=== PATIENT | male | born 1960 | race Caucasian/White ===

== ENCOUNTER 2020-02-08 13:42 | Emergency (ER) | payer OTHER, SELFPAY ==
[2020-02-08 13:48] VITALS: PULSE 90; RESP 18; TEMP 36.3; O2SAT 98; BMI 44.3
--- NOTE | 2020-02-08 13:50 | ED_ITS ---
HPI - Animal Bite General: Chief Complaint: Animal Bite Stated Complaint: LEFT FOOT Time Seen by Provider: 02/08/20 13:45 Source: patient Mode of arrival: ambulatory Limitations: no limitations History of Present Illness: HPI narrative: 59-year-old male who presents here states he was bit on the left foot by copperhead snake for 1 hour ago. He has a puncture wound with minimal swelling. He states he has slight pain he rates a 2 out of 10. He states it feels like a lil bee sting. He denies any shortness of breath. Denies any other symptoms. History improving factors. complaint: animal bite Onset (ago): hour(s) Associated symptoms: Deny chills, fever(s) or headache(s) Review of Systems Const: Denies: fever(s), chills, body aches or change in appetite Eyes: Denies: blurry vision or eye discomfort ENMT: Denies: throat pain or dental pain Card: Denies: chest pain Resp: Denies: dyspnea GI: Denies: abdominal pain, nausea, vomiting or diarrhea : Denies: dysuria Musc: Reports: extremity pain Skin/Breast: Denies: rash Neuro: Denies: headache(s) Psych: Denies: depression Mo/Lymph: Denies: easy bruising All/Imm: Denies: urticaria Physical Exam Const: COMMON NORMALS: no acute distress, patient oriented x3 and healthy appearing HENMT: COMMON NORMALS: normocephalic and atraumatic HEAD & SCALP: normocephalic and atraumatic Eye: COMMON NORMALS: Equal, round and reactive pupils present and EOMs intact bilaterally PUPIL: Yes Equal, round and reactive pupils present Neck/C-Spine: COMMON NORMALS: full ROM and supple Chest: COMMONS NORMALS: normal inspection of the chest and normal palpation of entire chest wall Resp: COMMON NORMALS: normal respiratory effort, No retractions, No use of accessory muscles and clear to auscultation bilaterally AUSCULTATION: clear to auscultation bilaterally Cardio: COMMON NORMALS: regular rate, regular rhythm and No murmurs present (Cardio) RATE: regular rate RHYTHM: regular rhythm GI: COMMON NORMALS: Normal to inspection, nondistended, normoactive bowel sounds present, Soft to palpation, non-tender and no masses PALPATION: Yes Soft to palpation Extremity: COMMON NORMALS: normal to inspection and full ROM NARRATIVE EXTREMITY EXAM: Puncture wound to left foot with no swelling at this time or redness. Neuro: COMMON NORMALS: patient oriented x3, moves all extremities and no focal motor deficits Psych: COMMON NORMALS: mental status grossly normal, Normal thought process present and cooperative THOUGHT PROCESS: Normal thought process present Skin: COMMON NORMALS: no rashes or lesions noted and no wounds GENERAL SKIN EXAM: no rashes or lesions noted Course Vital Signs: Vital signs: Vital Signs Temperature 97.3 F L 02/08/20 13:48 Pulse Rate 90 02/08/20 13:48 Respiratory Rate 18 02/08/20 14:15 Pulse Oximetry 96 02/08/20 14:15 MDM - Animal Bite MDM Narrative: Medical decision making narrative: Patient presents here with a snake bite to his right foot. Likely a dry bite is he has no symptoms after being observed for 2 hours. Patient is hypertensive here and has not seen a PCP. We will get him into PCP and start him on lisinopril. He is asymptomatic. He is to return if worsening. He understands agrees to plan. Lab Data: Labs: Lab Results 02/08/20 02/08/20 02/08/20 Range/Units 13:57 13:57 13:57 WBC 4.9 (4.0-10.0) 10^3/ uL RBC 5.32 H (4.1-5.3) 10^6/u L Hgb 15.5 (11.7-16.6) g/dL Hct 45.4 (42.0-52.0) % MCV 85.3 (80-94) fL MCH 29.1 (28.0-34.0) pg MCHC 34.1 (30.0-36.0) g/dL RDW 11.8 L (12.1-15.1) % Plt Count 217 (130-400) 10^3/c mm MPV 8.5 (7.4-10.4) fL Neut % (Auto) 57.9 % Lymph % (Auto) 30.1 % Nicholas % (Auto) 10.2 % Eos % (Auto) 1.0 % Baso % (Auto) 0.6 % Neut # (Auto) 2.83 (1.8-7.7) 10^3/u L Lymph # (Auto) 1.5 (0.8-4.8) 10^3/u L Nicholas # (Auto) 0.5 (0.2-0.9) 10^3/u L Eos # (Auto) 0.1 (0.0-0.8) 10^3/u L Baso # (Auto) 0.0 (0.0-0.1) 10^3/u L Nucleated RBC % (a uto) 0 % Nucleated RBCs # 0.0 /100WBC PT 12.70 (12.1-14.9) SECO NDS INR 0.92 (0.8-1.2) Sodium 137 (136-145) mmol/L Potassium 4.0 (3.5-5.1) mmol/L Chloride 100 (98-107) mmol/L Carbon Dioxide 25 (22-29) mmol/L Anion Gap 16.0 (5-19) BUN 12 (8-23) mg/dL Creatinine 1.0 (0.7-1.2) mg/dL GFR Calculation 76.2 L (90-130) mL/min Glucose 112 (65-115) mg/dL Calculated Osmolal ity 285 (285-295) mOsm/k g Calcium 9.4 (8.5-10.5) mg/dL Total Bilirubin 0.4 (0.15-1.2) mg/dL AST 25 (0-40) U/L ALT 32 (0-41) U/L Alkaline Phosphata se 77 (40-130) IU/L Total Protein 6.9 (6.6-8.7) g/dL Albumin 4.2 (3.5-5.2) g/dL Globulin 2.7 (1.3-4.6) g/dL Discharge Plan Discharge Patient Disposition: Home Clinical Impression: Snake bite Qualifiers: Encounter type: initial encounter Qualified Code(s): W59.11XA - Bitten by nonvenomous snake, initial encounter Hypertension Qualifiers: Hypertension type: unspecified Qualified Code(s): I10 - Essential (primary) hypertension Condition: Stable Prescriptions: New lisinopril 10 mg tablet 10 mg PO DAILY Qty: 30 RF: 1 No Action garlic 100 mg Tablet 100 mg PO DAILY RF: 0 Fish Oil 1,000 mg (120 mg-180 mg) Capsule 1 cap PO DAILY RF: 0 Discharge Orders: Discharge Order (Routine); Ordered 02/08/20 Ordered By: Beni Cortes Discharge Diet: Advance as tolerated Discharge Activity: Resume usual activity Patient Instructions: Snake Bite (ED), Hypertension (ED) Coding Level of Care Code ED Chief Estimator for Hamzah Fwd Exam Comprehensive
[2020-02-08 14:06] LABS: Basophils % 0.6 %; Eosinophils # 0.1 10^3/uL (0.0-0.8); Hematocrit 45.4 % (42.0-52.0); Hemoglobin 15.5 g/dL (11.7-16.6); Lymphocytes # 1.5 10^3/uL (0.8-4.8); Lymphocytes % 30.1 %; Mean Corpuscular HGB Conc 34.1 g/dL (30.0-36.0); Mean Corpuscular Hemoglobin 29.1 pg (28.0-34.0); Mean Corpuscular Volume 85.3 fL (80-94); Mean Platelet Volume 8.5 fL (7.4-10.4); Monocytes # 0.5 10^3/uL (0.2-0.9); Monocytes % 10.2 %; Neutrophils # 2.83 10^3/uL (1.8-7.7); Neutrophils % 57.9 %; Nucleated Red Blood Cells % 0 %; Platelet Count 217 10^3/cmm (130-400); Red Blood Count 5.32 10^6/uL (4.1-5.3); Red Cell Distribution Width 11.8 % (12.1-15.1); White Blood Count 4.9 10^3/uL (4.0-10.0)
[2020-02-08] MEDS: ondansetron 2 mg/ML SDV 2 mL 4 MG IVP (14:14)
[2020-02-08 14:15] VITALS: RESP 18; O2SAT 96
[2020-02-08] MEDS: morphine 4 mg/mL SDV 1 mL IVP (14:15)
[2020-02-08 14:18] LABS: INR 0.92 (0.8-1.2)
[2020-02-08 14:20] LABS: Alanine Aminotransferase 32 U/L (0-41); Albumin Level 4.2 g/dL (3.5-5.2); Alkaline Phosphatase 77 IU/L (40-130); Aspartate Amino Transferase 25 U/L (0-40); Blood Urea Nitrogen 12 mg/dL (8-23); Calcium 9.4 mg/dL (8.5-10.5); Carbon Dioxide 25 mmol/L (22-29); Chloride 100 mmol/L (98-107); Globulin 2.7 g/dL (1.3-4.6); Glomerular Filtration Rate 76.2 mL/min (90-130); Glucose 112 mg/dL (65-115); Osmolality Calculated 285 mOsm/kg (285-295); Sodium 137 mmol/L (136-145); Total Bilirubin 0.4 mg/dL (0.15-1.2); Total Protein 6.9 g/dL (6.6-8.7)
[2020-02-08 15:52] VITALS: BP 193/105; PULSE 71; RESP 18; O2SAT 99
== END 2020-02-08 15:52 | disposition home or self-care (01) ==
PROVIDERS: Emergency Provider Emergency Medicine
DX: T63.001A Toxic effect of unspecified snake venom, accidental (unintentional), initial encounter (principal); W59.11XA Bitten by nonvenomous snake, initial encounter; I10 Essential (primary) hypertension
CPT/HCPCS: 12345; 36415; 80053; 85025; 85610; 96374; 96375; 99282; 99283; J2270; J2405

== ENCOUNTER 2021-08-04 13:48 | Emergency (ER) | payer OTHER, SELFPAY ==
[2021-08-04 14:17] VITALS: BP 154/82; PULSE 61; RESP 16; TEMP 36.6; O2SAT 97; BMI 48.7
--- NOTE | 2021-08-04 14:26 | ED_ITS ---
Documented by User: WENDY Dyson 08/04/21 16:01 HPI - Extremity Injury (Upper) General: Chief Complaint: Extremity Injury, Upper Stated Complaint: Cut Finger Bad bleeding Time Seen by Provider: 08/04/21 14:25 Source: patient Mode of arrival: ambulatory Limitations: no limitations History of Present Illness: Patient is a nice 61-year-old male who presents to ED today with a complaint of a left pinky finger injury. Patient states he got the distal end of the finger caught in a garage door and ripped off . Patient's tetanus is UTD. complaint: injury to: left and finger Onset (ago): hour(s) Other Extremity Injury: Left: fingers Other injuries: none Handedness: right Place: home Severity: severe Context: crush Associated symptoms: Reports no associated symptoms Treatments prior to arrival: bandage Review of Systems Musc: Reports: extremity pain (L 5th finger) [facility] ED PFSH: Social History Smoking and tobacco status: never smoked Physical Exam Const: COMMON NORMALS: no acute distress, patient oriented x3, no limitations and alert GENERAL APPEARANCE: cooperative NUTRITIONAL APPEARANCE: obese Extremity: GENERAL: Yes normal exam except as noted RIGHT UPPER EXTREMITY: Yes hand & digits OTHER: pt has distal phalanx amputation of L 5th finger with full nail avulsion; bleeding controlled; exposed bone present Neuro: COMMON NORMALS: patient oriented x3 SENSORIUM/ORIENTATION: Yes alert Course Consultations: Consultation #1: Dr. Rao-recommends dressing and send over to ortho clinic and she will evaluate. Vital Signs: Vital signs: Vital Signs Temperature 97.9 F 08/04/21 14:17 Pulse Rate 61 08/04/21 14:17 Respiratory Rate 18 08/04/21 14:48 Blood Pressure 154/82 08/04/21 14:17 Pulse Oximetry 97 08/04/21 14:17 MDM - Extremity Injury (Upper) Medical Decision Making Patient has a comminuted distal tuft fracture/distal phalanx amputation. Tetanus is UTD. Finger was irrigated extensively patient was given IM Ancef. Spoke to Dr. Lea who recommends dressing the finger and sending straight to the orthopedic clinic for evaluation with plan for probable rongeur/skin flap in the OR tomorrow. Lab Data Radiology Impressions Finger X-Ray 08/04/21 14:31 IMPRESSION: Comminuted fracture of the distal tuft of the 5th digit with palmar displacement. Discharge Plan Discharge Patient Disposition: Home Clinical Impression: Fingertip amputation Qualifiers: Encounter type: initial encounter Qualified Code(s): S68.119A - Complete traumatic metacarpophalangeal amputation of unspecified finger, initial encounter Open fracture of distal phalanx of finger of left hand Qualifiers: Encounter type: initial encounter Finger: little finger Fracture alignment: nondisplaced Qualified Code(s): S62.667B - Nondisplaced fracture of distal phalanx of left little finger, initial encounter for open fracture Condition: Stable Prescriptions: New hydrocodone-acetaminophen 5-325 mg tablet 1 tab PO Q4H PRN (Reason: pain) Qty: 20 0RF cephalexin 500 mg capsule 500 mg PO Q6H 7 Days Qty: 28 0RF No Action garlic 100 mg Tablet 100 mg PO DAILY 0RF Rx Instructions: pt states he takes several otc suppliments, but cannot name them at all. he states he just started taking about a week ago. Fish Oil 1,000 mg (120 mg-180 mg) Capsule 1 cap PO DAILY 0RF Rx Instructions: pt states he just started taking suppliments about a week ago. lisinopril 10 mg tablet 10 mg PO DAILY Qty: 30 1RF Discharge Orders: Discharge ED (Routine); Ordered 08/04/21 Ordered By: Sveta Coleman Referrals: Magaly Rao MD [Physician] - Activity Restrictions/Additional Instructions: As we discussed head straight across the street to the [facility] orthopedic clinic where you will see Dr. Rao and she will evaluate finger and possibly plan for the OR tomorrow. Coding Level of Care Code ED Hat Maker for Chg Fwd Exam Expanded Problem Focused Documented by User: Luis Ward DO 08/05/21 07:00 HPI - Extremity Injury (Upper) General: Chief Complaint: Extremity Injury, Upper Stated Complaint: Cut Finger Bad bleeding Time Seen by Provider: 08/04/21 14:25 [facility] ED PFSH: Social History Smoking and tobacco status: never smoked Course Vital Signs: Vital signs: Vital Signs Temperature 97.9 F 08/04/21 14:17 Pulse Rate 61 08/04/21 14:17 Respiratory Rate 18 08/04/21 14:48 Blood Pressure 154/82 08/04/21 14:17 Pulse Oximetry 97 08/04/21 14:17 MDM - Extremity Injury (Upper) Medical Decision Making Patient has a comminuted distal tuft fracture/distal phalanx amputation. Tetanus is UTD. Finger was irrigated extensively patient was given IM Ancef. Spoke to Dr. Lea who recommends dressing the finger and sending straight to the orthopedic clinic for evaluation with plan for probable rongeur/skin flap in the OR tomorrow. Chart reviewed and patient discussed with midlevel. Agree with assessment and plan. Lab Data Radiology Impressions Finger X-Ray 08/04/21 14:31
--- NOTE | 2021-08-04 14:31 | XRR_ITS ---
PROCEDURE INFORMATION: Exam: XR Left Finger(s) Exam date and time: 08/04/2021 1:46 PM Age: 61 years old Clinical indication: Injury or trauma; Other: Caught hand in garage door; Blunt trauma (contusions or hematomas); Left; Additional info: Distal amputation TECHNIQUE: Imaging protocol: XR Left fingers. Views: Minimum 2 views. COMPARISON: No relevant prior studies available. FINDINGS: Bones/joints: Comminuted fracture of the distal tuft of the 5th digit with palmar displacement. Soft tissues: Wound defect along the distal finger. XR/XR finger LT min 2V 32595 IMPRESSION: Comminuted fracture of the distal tuft of the 5th digit with palmar displacement.
[2021-08-04 14:48] VITALS: RESP 18
[2021-08-04] MEDS: ondansetron 2 mg/ML SDV 2 mL 4 MG IM (14:48)
[2021-08-04] MEDS: morphine 4 mg/mL SDV 1 mL IM (14:48)
[2021-08-04] MEDS: ceFAZolin 1,000 mg SDV 1000 MG IM (14:50)
== END 2021-08-04 16:00 | disposition home or self-care (01) ==
PROVIDERS: Emergency Provider Physician Assistant
DX: S68.117A Complete traumatic metacarpophalangeal amputation of left little finger, initial encounter (principal); S62.667B Nondisplaced fracture of distal phalanx of left little finger, initial encounter for open fracture; W23.0XXA Caught, crushed, jammed, or pinched between moving objects, initial encounter; Z20.822 Contact with and (suspected) exposure to COVID-19
CPT/HCPCS: 73140; 87635; 96372; 99283; J0690; J2270; J2405

== ENCOUNTER 2021-08-05 11:58 | Day surgery (SDC) | payer OTHER, SELFPAY ==
[2021-08-05] VITALS (14 sets, daily range): BP systolic 113–142; BP diastolic 66–94; PULSE 58–72; RESP 15–18; TEMP 36.3–36.7; O2SAT 93–100; BMI 51.7
[2021-08-05] MEDS: sodium chloride 0.9% 1,000 ML 30 ML IV (12:47)
--- NOTE | 2021-08-05 12:48 | ANES.PREANE2 ---
Pre-Anesthetic Assessment Height/Weight: Height 1.75 m Weight 158.757 kg Temp Pulse Resp BP Pulse Ox 97.9 F 64 18 119/66 98 08/05/21 12:28 08/05/21 12:28 08/05/21 12:28 08/05/21 12:28 08/05/21 12:28 Preop Diagnosis: Traumatic amputation left small fingertip, Open fracture distal phalanx Operation Date: 08/05/21 16:10 Proposed Procedures p Amputation Finger Revision [id number]/s68.119a(Left) - Magaly Rao MD Familial anesthetic complications: None Was Beta Nadja taken within 24 hours: N/A Was Clonidine taken within 24 hours: N/A Last intake: Intake Last Liquid Date 08/04/21 Last Liquid Time 22:00 Last Solid Date 08/04/21 Last Solid Time 20:00 Social No alcohol and No tobacco Exam alert, oriented x 3, clear to auscultation bilaterally and regular rate & rhythm Airway Mallampati: Class III Dentition: other (missing) Pulmonary Sleep Apnea CV/HEM Hypertension Metabolic Hyperlipidemia and Morbid Obesity Anesthetic Plan ASA status: 3 Anesthesia: MAC Risk of > 500 ml blood loss (7ml/kg in children): No Medications/Allergies Home Medications Medication Instructions Recorded Confirmed Last Taken Type garlic 100 mg tablet 100 mg PO DAILY 02/08/20 08/05/21 08/05/21 History omega 3-rdx-hkr-fish oil 1,000 mg 1 cap PO DAILY 02/08/20 08/05/21 Unknown History (120 mg-180 mg) capsule (Fish Oil) cephalexin 500 mg capsule 500 mg PO Q6H 7 Days #28 cap 08/04/21 08/05/21 08/05/21 Rx hydrocodone 5 mg-acetaminophen 325 1 tab PO Q4H PRN #20 tab 08/04/21 08/05/21 08/05/21 Rx mg tablet atorvastatin 40 mg tablet 40 mg PO DAILY 08/05/21 08/05/21 08/04/21 History hydrochlorothiazide 25 mg tablet 25 mg PO DAILY 08/05/21 08/05/21 08/04/21 History metoprolol tartrate 100 mg tablet 100 mg PO DAILY 08/05/21 08/05/21 08/04/21 History Allergies Allergy/AdvReac Type Severity Reaction Status Date / Time ampicillin Allergy ALGY-Rash Verified 08/04/21 16:26 hydrocodone [From Vicodin] Allergy rash Verified 08/04/21 16:26 [facility] Anesthesia Social History Smoking and tobacco status: never smoked Data Anesthesia Cardiac Studies: No Data to Display
[2021-08-05] MEDS: CELEcoxib 200 mg Capsule 400 MG PO (12:53)
[2021-08-05] MEDS: acetaminophen 1,000 MG/100 ML PIGGYBACK 400 MG IV (12:53)
[2021-08-05] MEDS: vancomycin 1,000 MG in sodium chloride 0.9% 250 ML 250 MG IV (14:26)
--- NOTE | 2021-08-05 14:42 | P.HPUD_ITS ---
Surgery/Procedure H&P Update DATE OF PROCEDURE: August 05, 2021 DATE H&P PERFORMED: 08/04/21 H&P UPDATE INFORMATION: I have reviewed H&P completed within last 30 days, I have examined patient prior to procedure, No changes to prior documentation and H&P is in [facility] EMR on date indicated PREOP DIAGNOSIS: Traumatic amputation left small fingertip, Open fracture distal phalanx PLANNED PROCEDURE: Operation Date: 08/05/21 16:10 Proposed Procedures p Amputation Finger Revision [id number]/s68.119a(Left) - Magaly Rao MD Related Problem List Diagnoses (1) Fingertip amputation: Qualifiers: Encounter type: initial encounter Qualified Code(s): S68.119A - Complete traumatic metacarpophalangeal amputation of unspecified finger, initial encounter (2) Open fracture of distal phalanx of left little finger: Qualifiers: Encounter type: initial encounter Fracture alignment: displaced Qualified Code(s): S62.637B - Displaced fracture of distal phalanx of left little finger, initial encounter for open fracture
[2021-08-05] MEDS: silvasorb gel 44.4 mL 1 APPLIC TOPICAL (15:35)
[2021-08-05] MEDS: silvasorb gel 44.4 mL 44 APPLIC (15:41)
--- NOTE | 2021-08-05 16:10 | PM.OP ---
Operative Report Date of procedure: August 05, 2021 Pre-op diagnosis: Traumatic amputation left small fingertip, Open fracture distal phalanx Post-op diagnosis: Traumatic amputation left small fingertip, Open fracture distal phalanx Procedure done: Revision amputation left small finger distal phalanx with irrigation and debridement Specimens removed/disposition: None Surgeon: Magaly Rao Flight Operations Manager: None Anesthesia: General (Intubated, ASA 3) Estimated blood loss (mL): 5 IV fluids (mL): 800 Urine output (mL): 0 (No Villar) Complications: None Findings: Comminuted distal phalanx fracture, open with traumatic amputation distal tuft of left small finger Condition: stable Disposition: PACU (Then to same-day surgery for discharge to home) Brief History: This 61-year-old gentleman was seen in the emergency department late yesterday afternoon. He had caught the distal aspect of his left small finger in the door suffering a traumatic amputation and open fracture. The patient was sent from the emergency department to my office for further evaluation. History was taken, surgery was discussed, and consents were signed. The patient was scheduled for the above surgery. Questions were answered. Procedure: The patient was brought to the operating theater. The patient had a general intubated anesthesia, ASA 3. No tourniquet was utilized. The patient was also given vancomycin 1 g preoperatively. The arm was then prepped and draped with Betadine in usual fashion with the arm draped free. A surgical pause was performed. At the time, the surgical pause, we confirmed the site and side of surgery. We also confirmed the patient's identity, appropriate and timely administration of preoperative antibiotics and preoperative surgical markings. The patient's finger was evaluated. There was obvious traumatic loss of the distal tip of the small finger of the left hand. This was associated with an open fracture. Imaging studies were reviewed. This study demonstrated an open comminuted fracture of the distal tuft of the small finger of the left hand. The wound was evaluated. There was skin loss, but there was some maintenance of the dermis. After the hand was prepped, soft tissues were elevated off of the most distal aspect of the distal aspect of the remaining distal phalanx. We then used a bone biter and rongeur along with a rasp to resect this distal bone. Once we had enough distal bone resection that we were able to close soft tissues, we obtained hemostasis. The finger was closed with 3-0 nylon sutures. Following this, a sterile dressing was placed consisting of SilvaSorb, Telfa, a fluff, and tube gauze. Over this was placed in Silvino wrap and tape. There were no complications. There were no specimens. The procedure was well tolerated. Plan is the patient will be discharged home. Related Problem List Diagnoses (1) Open fracture of distal phalanx of left little finger: (2) Fingertip amputation:
--- NOTE | 2021-08-05 16:22 | ANE.PACU2 ---
Inpatient post-anesthesia follow up: Airway intact: Yes Vital signs: Temperature 98.1 F Pulse Rate 68 Respiratory Rate 15 Blood Pressure 133/86 Pulse Oximetry 100 Oxygen Delivery Me thod Room Air Oxygen Flow Rate 6 Fraction of Inspir ed Oxygen Hydration adequate: Yes Nausea and vomiting: No Pain level: 2 Mental status: Baseline
[2021-08-05] MEDS: fentaNYL 50 mcg/mL INJ 2mL IVP (16:30)
== END 2021-08-05 17:25 | disposition home or self-care (01) ==
PROVIDERS: Visit Provider Specialist
PROC: (CPT 26951; principal; 2021-08-05 16:00)
DX: S68.117A Complete traumatic metacarpophalangeal amputation of left little finger, initial encounter (principal); W23.0XXA Caught, crushed, jammed, or pinched between moving objects, initial encounter; G47.30 Sleep apnea, unspecified; I10 Essential (primary) hypertension; E78.5 Hyperlipidemia, unspecified; E66.01 Morbid (severe) obesity due to excess calories; Z68.43 Body mass index [BMI] 50.0-59.9, adult
CPT/HCPCS: 26951; J0330; J1100; J2405; J2704; J3010; J3370; J3490; J7030; J7050

== ENCOUNTER 2022-04-05 16:40 | Emergency (ER) | payer OTHER, SELFPAY ==
[2022-04-05 16:56] VITALS: BP 179/108; PULSE 82; RESP 20; TEMP 35.8; O2SAT 96
--- NOTE | 2022-04-05 18:44 | XRR_ITS ---
PROCEDURE INFORMATION: Exam: XR Chest Exam date and time: 04/05/2022 8:07 PM Age: 61 years old Clinical indication: Cough and dyspnea; Additional info: Cough, dyspnea TECHNIQUE: Imaging protocol: Radiologic exam of the chest. Views: 1 view. COMPARISON: No relevant prior studies available. FINDINGS: Lungs: Prominent interstitial markings in the lateral left lung. No focal consolidation. Pleural spaces: There is no pleural effusion or pneumothorax. Heart/Mediastinum: Cardiomediastinal contours are unremarkable. Bones/joints: Bones are unremarkable. XR/XR chest 1V portable [id number] IMPRESSION: Prominent interstitial markings in the lateral left lung. This could be related to radiographic technique. Atypical infection or asymmetric edema not excluded.
--- NOTE | 2022-04-05 18:44 | ECG_ITS ---
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 Measurements Intervals [place] Rate: 72 P: 28 [place]: 149 QRS: 38 QRSD: 98 T: 8 QT: 403 QTc: 443 Interpretive Statements SINUS RHYTHM No previous ECG available for comparison Electronically Signed On 04-06-2022 17:09:36 [employer] ESTATE PORTFOLIO MANAGER by Yash Quijano M.D. [id number]
--- NOTE | 2022-04-05 18:46 | ED_ITS ---
HPI - SOB/Dyspnea General: Chief Complaint: Shortness of Breath/Dyspnea Stated Complaint: SOB, not able to eat Time Seen by Provider: 04/05/22 18:37 History of Present Illness: HPI Narrative: 61-year-old male with a relevant history of morbid obesity, former alcohol abuse, prior bleeding peptic ulcer, hypertension who presents with 1 month of cough and shortness of breath which has been getting progressively worse. He believes he had a fever at the beginning but has not had one in the last few weeks. He does have orthopnea, dyspnea on minimal exertion, dry hacking cough, nausea, loss of appetite. He has been taking erythromycin 4 times a day. He do es not know the dosage and states that it was meant for an animal and he just happened to have some in his house. He had no way of getting to town to get other medication. Associated symptoms: Reports chest pain (From coughing so much), diaphoresis and orthopnea; Deny abdominal pain, extremity pain, hemoptysis, syncope or vomiting Review of Systems General: Reports: 10 or more systems reviewed and unremarkable except in HPI and below Const: Reports: change in appetite, fatigue, malaise and diaphoresis; Denies: chills or body aches Eyes: Denies: change in vision ENMT: Reports: hoarseness and post nasal drip Card: Reports: chest pain (From coughing so much), edema, dyspnea on exertion and orthopnea; Denies: syncope Resp: Reports: dyspnea, non-productive cough and wheezing; Denies: hemoptysis GI: Denies: abdominal pain, vomiting or diarrhea : Denies: flank pain, dysuria or urinary frequency Musc: Reports: extremity swelling; Denies: neck pain, back pain or extremity pain Skin/Breast: Denies: rash or erythema Neuro: Denies: headache(s), numbness in extremities, weakness in extremities, lack of coordination or difficulty walking Psych: Reports: anxiety PFSH ED PFSH: Social History Smoking and tobacco status: never smoked Physical Exam Const: COMMON NORMALS: no limitations, alert and well nourished EXAM LIMITATIONS: no altered mental status GENERAL APPEARANCE: cooperative and well developed NUTRITIONAL APPEARANCE: obese ORIENTATION/CONSCIOUSNESS: Yes awake; not confused HENMT: COMMON NORMALS: normocephalic, atraumatic, external ears normal and Normal external nose present HEAD & SCALP: normal to inspection, normocephalic and atraumatic FACE & SINUS: face symmetric NOSE: Normal external nose present EXTERNAL EAR: Yes external ears normal MOUTH: lip normal and other (Hoarse voice) Eye: COMMON NORMALS: EOMs intact bilaterally and conjunctivae normal GENERAL EYE: appearance normal, both eyes and all related structures CONJUNCTIVA: Yes conjunctivae normal Neck/C-Spine: GENERAL: Yes normal visual inspection and Yes trachea midline Resp: EFFORT & INSPECTION: No able to speak in complete sentences, Yes tachypneic, Yes Actively coughing, Yes uses accessory muscles and Yes audible wheezes AUSCULTATION: abnormal I/E ratio and wheezes Cardio: COMMON NORMALS: regular rate and regular rhythm RATE: regular rate RHYTHM: regular rhythm PERIPHERAL PULSES: radial pulses present GI: COMMON NORMALS: Soft to palpation INSPECTION: Yes normal to inspection PALPATION: Yes Soft to palpation, No Tenderness to palpation present (GI) and No Guarding due to palpation present (GI) Back/Pelvis: COMMON NORMALS: thoraco-lumbar ROM normal Extremity: NARRATIVE EXTREMITY EXAM: Mild bilateral ankle edema Neuro: COMMON NORMALS: moves all extremities, no focal motor deficits and no sensory deficits noted SENSORIUM/ORIENTATION: Yes alert Psych: COMMON NORMALS: mental status grossly normal, Normal thought process present, cooperative and normal affect THOUGHT PROCESS: Normal thought process present Skin: COMMON NORMALS: no jaundice Course Vital Signs: Vital signs: Vital Signs Temperature 96.5 F L 04/05/22 16:56 Pulse Rate 80 04/05/22 19:04 Respiratory Rate 20 H 04/05/22 18:57 Blood Pressure 179/108 04/05/22 16:56 Pulse Oximetry 96 04/05/22 18:57 Oxygen Delivery Me thod 04/05/22 18:57 MDM - SOB/Dyspnea Medical Decision Making Differential diagnosis includes bronchitis, pneumonia, congestive heart failure, pulmonary edema with hypertensive urgency, pulmonary embolism, pleural effusions, anemia, obesity hypoventilation syndrome, other. The patient has wheezing and bronchospastic signs including triggering a cough with deep breath. Will attempt DuoNeb while we are working him up to see if it calms down his bronchospasm. Some Solu-Medrol was also ordered. The patient does not have any known history of congestive heart failure but this would be on the differential diagnosis. He appears to be mildly fluid overloaded on examination. Some Lasix was ordered and a BNP and chest x-ray are pending. UPDATE: DD neg BNP neg (however, obese so may lower sensitivity) Diminished NaCl--likely due to decreased po. BP improved with meds. WBC normal. CXR ? atypical infection vs some edema Given breathing treatment, steroids, and some lasix in ED (third space is fluid up, probably euvolemic intravascular, running slightly dry due to his cough/obesity) D/c with breathing treatments, doxy, steroids. Probable viral respiratory infection now with residual bronchospasm. Lab Data 04/05/22 18:57 04/05/22 18:57 Labs/Radiology: Radiology Impressions Chest X-Ray 04/05/22 18:44 IMPRESSION: Prominent interstitial markings in the lateral left lung. This could be related to radiographic technique. Atypical infection or asymmetric edema not excluded. Laboratory Results WBC 7.1 10^3/uL (4.0-10.0) 04/05/22 18:57 RBC 5.78 10^6/uL (4.1-5.3) H 04/05/22 18:57 Hgb 17.0 g/dL (11.7-16.6) H 04/05/22 18:57 Hct 48.5 % (42.0-52.0) 04/05/22 18:57 MCV 83.9 fl (80-94) 04/05/22 18:57 MCH 29.4 pg (28.0-34.0) 04/05/22 18:57 MCHC 35.1 g/dL (30.0-36.0) 04/05/22 18:57 RDW 11.7 % (12.1-15.1) L 04/05/22 18:57 Plt Count 237 10^3/cmm (130-400) 04/05/22 18:57 MPV 8.7 fL (7.4-10.4) 04/05/22 18:57 Neut % (Auto) 63.1 % 04/05/22 18:57 Lymph % (Auto) 24.4 % 04/05/22 18:57 Lander % (Auto) 10.3 % 04/05/22 18:57 Eos % (Auto) 1.5 % 04/05/22 18:57 Baso % (Auto) 0.4 % 04/05/22 18:57 Neut # (Auto) 4.48 10^3/uL (1.8-7.7) 04/05/22 18:57 Lymph # (Auto) 1.7 10^3/uL (0.8-4.8) 04/05/22 18:57 Lander # (Auto) 0.7 10^3/uL (0.2-0.9) 04/05/22 18:57 Eos # (Auto) 0.1 10^3/uL (0.0-0.8) 04/05/22 18:57 Baso # (Auto) 0.0 10^3/uL (0.0-0.1) 04/05/22 18:57 Nucleated RBC % (auto) 0 % 04/05/22 18:57 Nucleated RBCs # 0.0 /100WBC 04/05/22 18:57 D-Dimer 0.51 ug/mIFEU (0-0.59) 04/05/22 18:57 Specimen Type Arterial 04/05/22 18:56 Sample Site Radial, left 04/05/22 18:56 ABG pH 7.53 (7.35-7.45) H 04/05/22 18:56 ABG pCO2 27.8 mmHg (35-45) L 04/05/22 18:56 ABG pO2 83.3 mmHg (80.0-100.0) 04/05/22 18:56 ABG HCO3 23.2 mmol/L (22-26) 04/05/22 18:56 ABG Base Excess 1.9 mmol/L (-2.0-2.0) 04/05/22 18:56 Barry Test Pos 04/05/22 18:56 Hematocrit 51.3 % (42-52) 04/05/22 18:56 Hgb O2 Saturation 96.2 % (95-100) 04/05/22 18:56 Carboxyhemoglobin 1.1 %THgb (0.4-20.1) 04/05/22 18:56 Methemoglobin 0.6 % (0.4-1.5) 04/05/22 18:56 Total Hemoglobin 16.7 g/dL (14-18) 04/05/22 18:56 O2 Delivery Device Room air 04/05/22 18:56 FiO2 21.0 % 04/05/22 18:56 Register In Chancery ID Cak 04/05/22 18:56 Sodium 130 mmol/L (136-145) L 04/05/22 18:57 Potassium 3.6 mmol/L (3.5-5.1) 04/05/22 18:57 Chloride 94 mmol/L (98-107) L 04/05/22 18:57 Carbon Dioxide 24 mmol/L (22-29) 04/05/22 18:57 Anion Gap 15.6 (5-19) 04/05/22 18:57 BUN 19 mg/dL (8-23) 04/05/22 18:57 Creatinine 0.9 mg/dL (0.7-1.2) 04/05/22 18:57 GFR Calculation 85.5 mL/min (90-130) L 04/05/22 18:57 Glucose 125 mg/dL (65-115) H 04/05/22 18:57 Calculated Osmolality 274 mOsm/kg (285-295) L 04/05/22 18:57 Calcium 9.0 mg/dL (8.5-10.5) 04/05/22 18:57 Total Bilirubin 1.0 mg/dL (0.15-1.2) 04/05/22 18:57 AST 30 U/L (0-40) 04/05/22 18:57 ALT 36 U/L (0-41) 04/05/22 18:57 Alkaline Phosphatase 77 U/L (40-130) 04/05/22 18:57 NT-Pro-B Natriuret Pep 46 pg/mL (0-125) 04/05/22 18:57 Total Protein 7.8 g/dL (6.6-8.7) 04/05/22 18:57 Albumin 4.0 g/dL (3.5-5.2) 04/05/22 18:57 Globulin 3.8 g/dL (1.3-4.6) 04/05/22 18:57 Imaging Data CXR: My impression: Mild interstitial prominence, no cardiomegaly, no dense consolidations or sig effusions EKG Data EKG 1: Interpretation: Sinus rhythm at a rate of 72 bpm, normal axis, normal intervals, no concerning ST segment elevations or depressions. No ectopy. ABG Data ABG Interpretation 1: ABG results: Hyperventilating--resp alkalosis without signs of metabolic acidosis. Discharge Plan Discharge Condition: Stable Prescriptions: New prednisone 50 mg tablet 50 mg PO DAILY 5 Days Qty: 5 0RF albuterol sulfate 90 mcg/actuation HFA aerosol inhaler 2 inh inhalation Q4H PRN (Reason: shortness of breath or wheezing) Qty: 8.5 0RF ondansetron 4 mg tablet,disintegrating 4 mg PO Q8H PRN (Reason: nausea and vomiting) 5 Days Qty: 14 0RF doxycycline monohydrate 100 mg capsule 100 mg PO BID 7 Days Qty: 14 0RF No Action garlic 100 mg Tablet 100 mg PO DAILY Rx Instructions: pt states he takes several otc suppliments, but cannot name them at all. he states he just started taking about a week ago. omega [id number]-fish oil [Fish Oil] 1,000 mg (120 mg-180 mg) Capsule 1 cap PO DAILY Rx Instructions: pt states he just started taking suppliments about a week ago. hydrocodone-acetaminophen 5-325 mg tablet 1 tab PO Q4H PRN (Reason: pain) Qty: 20 0RF Hold Instructions: Resume on 08/12/21. atorvastatin 40 mg Tablet 40 mg PO DAILY metoprolol tartrate 100 mg tablet 100 mg PO DAILY hydrochlorothiazide 25 mg Tablet 25 mg PO DAILY Discharge Orders: Discharge ED (Routine); Ordered 04/05/22 Ordered By: Nam Fregoso Discharge Diet: Advance as tolerated Discharge Activity: Increase activity as tolerated Activity Restrictions/Additional Instructions: 1. Use albuterol inhaler 2 puffs every 4 hours as needed. 2. Take steroids and antibiotics as directed but please take ondansetron (zofran) 30 minutes before taking these medications AND take them with food. 3. Your sodium and chloride are low--please make sure you increase your food and drink intake. 4. Make a follow-up appointment with your doctor for 3-5 days. 5. Return to [facility] if getting worse. Coding Level of Care Code ED Cardiovascular Technician for [facility] Fwd Exam Comprehensive
[2022-04-05 18:57] VITALS: PULSE 72; RESP 20; O2SAT 96
[2022-04-05] MEDS: ipratropium-albuterol 3 mL Neb INHALATION (18:57)
[2022-04-05 19:04] VITALS: PULSE 80
[2022-04-05 19:06] LABS: Basophils % 0.4 %; Eosinophils # 0.1 10^3/uL (0.0-0.8); Eosinophils % 1.5 %; Hematocrit 48.5 % (42.0-52.0); Lymphocytes # 1.7 10^3/uL (0.8-4.8); Lymphocytes % 24.4 %; Mean Corpuscular HGB Conc 35.1 g/dL (30.0-36.0); Mean Corpuscular Hemoglobin 29.4 pg (28.0-34.0); Mean Corpuscular Volume 83.9 fl (80-94); Mean Platelet Volume 8.7 fL (7.4-10.4); Monocytes # 0.7 10^3/uL (0.2-0.9); Monocytes % 10.3 %; Neutrophils # 4.48 10^3/uL (1.8-7.7); Neutrophils % 63.1 %; Nucleated Red Blood Cells % 0 %; Platelet Count 237 10^3/cmm (130-400); Red Blood Count 5.78 10^6/uL (4.1-5.3); Red Cell Distribution Width 11.7 % (12.1-15.1); White Blood Count 7.1 10^3/uL (4.0-10.0)
[2022-04-05 19:08] LABS: ABG PCO2 27.8 mmHg (35-45); ABG PH Result 7.53 (7.35-7.45); Arterial Blood Gas Hematocrit 51.3 % (42-52); Base Excess ABG 1.9 mmol/L (-2.0-2.0); Blood Gas Allen Test Pos; Blood Gas Operator Identificat CAK; Blood Gas Sample Site Radial, left; Blood Gas Sample Type Arterial; Carboxyhemoglobin 1.1 %THgb (0.4-20.1); HCO3 ABG 23.2 mmol/L (22-26); HGB O2 Sat 96.2 % (95-100); Methemoglobin 0.6 % (0.4-1.5); Oxygen Device ROOM AIR; PO2 ABG 83.3 mmHg (80.0-100.0); Total Hemoglobin 16.7 g/dL (14-18)
[2022-04-05 19:20] LABS: D Dimer 0.51 ug/mIFEU (0-0.59)
[2022-04-05] MEDS: FUROsemide 10 mg/mL SDV 10mL 80 MG IVP (19:29)
[2022-04-05] MEDS: hyDRALAzine 20 mg/mL INJ 1 mL 10 MG IVP (19:31)
[2022-04-05] MEDS: magnesium sulfate premix 2 GM/50 ML PIGGYBACK IV (19:33)
[2022-04-05 19:38] LABS: Alanine Aminotransferase 36 U/L (0-41); Alkaline Phosphatase 77 U/L (40-130); Anion Gap 15.6 (5-19); Aspartate Amino Transferase 30 U/L (0-40); Blood Urea Nitrogen 19 mg/dL (8-23); Carbon Dioxide 24 mmol/L (22-29); Chloride 94 mmol/L (98-107); Creatinine Clr Calc Pharmacy 127.4997; Globulin 3.8 g/dL (1.3-4.6); Glomerular Filtration Rate 85.5 mL/min (90-130); Glucose 125 mg/dL (65-115); NT Pro B Type Natriuretic Pept 46 pg/mL (0-125); Osmolality Calculated 274 mOsm/kg (285-295); Potassium 3.6 mmol/L (3.5-5.1); Sodium 130 mmol/L (136-145); Total Protein 7.8 g/dL (6.6-8.7)
[2022-04-05 20:40] VITALS: BP 138/87; PULSE 74; RESP 18; O2SAT 94
== END 2022-04-05 20:45 | disposition home or self-care (01) ==
PROVIDERS: Emergency Provider Emergency Medicine
DX: R06.02 Shortness of breath (principal); R05.9 Cough, unspecified
CPT/HCPCS: 36600; 71045; 80053; 82805; 83880; 85025; 85378; 93005; 94640; 96365; 96375; 99285; J0360; J1940; J2930; J3475